=== PATIENT | female | born 1945 | race Caucasian/White ===

== ENCOUNTER → 2016-08-03 | Outpatient (CLI) | payer MEDICARE, BC ==
[~2016-08-03] MED LIST: CALC600T12 PO; DIGO250T72 PO; DILT240C64 PO; ESTR0.5T PO; FENO160T9 PO; FISH1CAP29 PO; FLUT12AE7 INH; FLUT50DI INH; HYDR-3989 PO; HYDR-4246 PO; LATA2.5D7 BOTH EYES; METH10TA7 PO; MULT-795 PO; POTA10TA16 PO; TRIA1TAB72 PO; VALS160T13 PO; WARF2TAB51 PO; ZOLP10TA6 PO; [UNRECOGNIZED DRUG - CODE] PO
== END ==
LOC: WC.BC 10:19
DX: Z12.31 Encounter for screening mammogram for malignant neoplasm of breast (principal)
CPT/HCPCS: 77063; G0202